=== PATIENT | female | born 1970 | race Hispanic/Latino ===

== ENCOUNTER 2022-01-12 18:03 | Emergency (ER) | payer BC ==
[~2022-01-12] VITALS: Ht 157.5 cm; Wt 105.7 kg
[2022-01-12] MEDS ORDERED: CYCLOBENZAPRINE HCL 10 MG TABLET PO ONE (18:30)
[2022-01-12] MEDS ORDERED: KETOROLAC 60 MG VIAL (30MG/ML) IM ONE (18:30)
[2022-01-12 18:35] LABS: APPEARANCE,URINE SL CLOUDY (CLEAR); BILIRUBIN,URINE NEGATIVE (NEGATIVE); COLOR,URINE YELLOW (YELLOW); GLUCOSE, URINE (UA) NEGATIVE (NEGATIVE); KETONES,URINE 5 mg/dL (NEGATIVE); LEUKOCYTE ESTERASE ,URINE NEGATIVE (NEGATIVE); NITRATE,URINE NEGATIVE (NEGATIVE); OCCULT BLOOD,URINE TRACE-INTACT (NEGATIVE); PROTEIN,URINE TRACE mg/dL (NEGATIVE); UROBILINOGEN,URINE 0.2 mg/dL (0.2-1.0)
[2022-01-12 18:59] LABS: BACTERIA,URINE Few /HPF (None Seen); MUCUS,URINE Moderate LPF (None Seen); SQUAMOUS EPITHELIAL CELL,UR Many /HPF (0-2)
[2022-01-12 19:09] VITALS: BP 127/68
== END 2022-01-12 19:21 | disposition home or self-care (01) ==
LOC: EDH 18:03
DX: S29.012A Strain of muscle and tendon of back wall of thorax, initial encounter (principal); S39.012A Strain of muscle, fascia and tendon of lower back, initial encounter; I10 Essential (primary) hypertension; E66.01 Morbid (severe) obesity due to excess calories; Z68.41 Body mass index [BMI] 40.0-44.9, adult; Z79.1 Long term (current) use of non-steroidal anti-inflammatories (NSAID); X58.XXXA Exposure to other specified factors, initial encounter; Y93.89 Activity, other specified; Y92.89 Other specified places as the place of occurrence of the external cause; Y99.8 Other external cause status
CPT/HCPCS: 99284; 81001; 72100; 72072; 96372; J1885